=== PATIENT | female | born 1960 | race American Indian/Alaskan Native ===

== ENCOUNTER 2022-02-15 11:33 | Outpatient (CLI) | payer OTHER ==
--- NOTE | 2022-02-16 10:03 | Mammography Report ---
DIGITAL SCREENING MAMMOGRAM WITH CAD, 02/15/2022 CLINICAL INFORMATION / INDICATION: Routine screening mammography. SCREENING MAMMOGRAM TECHNIQUE: Digital bilateral 2D mammography was obtained in the craniocaudal and mediolateral obliqu e projections. This examination was interpreted with the benefit of Computer-Aided Detection analysis . COMPARISON: None. FINDINGS: Breast Density: The breasts are heterogeneously dense, which may obscure small masses. No dominant mass, suspicious calcifications, or architectural distortion in either breast. The exam is limited by the difficulty in positioning the patient. IMPRESSION: No mammographic evidence of malignancy. Follow up recommendation: Routine yearly screening mammogram. BI-RADS Category 1: NEGATIVE A "normal" or negative report should not discourage follow up or biopsy of a clinically significant f inding. A written summary of these findings will be mailed to the patient. The patient will be entered into a mammography reporting system which will generate a reminder letter for the patient's next appointmen t at the appropriate interval. The [employer] recommends yearly mammograms starting at age 40 and continuing as l alex as a woman is in good health. Breast MRI is recommended for women with an approximate 20-25% or greater lifetime risk of breast cancer, including women with a strong family history of breast or ova oma cancer or who have been treated for Hodgkin's disease. Signer Name: Randall El MD Signed: 02/16/2022 9:58 AM Workstation Name: [email or web address]
== END 2022-02-15 11:34 | disposition home or self-care (01) ==
LOC: MAMMO 11:33
PROVIDERS: ATTEND Internal Medicine
DX: Z12.31 Encounter for screening mammogram for malignant neoplasm of breast (principal)
CPT/HCPCS: 77067

== ENCOUNTER 2022-06-29 11:35 | Outpatient (CLI) | payer OTHER ==
--- NOTE | 2022-06-29 15:22 | XRay Report ---
Bilateral feet INDICATION: Foot pain FINDINGS: There is diffuse osteopenia throughout the midfoot and distal foot on the right. Degenerati ve change throughout the MTP joints and IP joints. Diffuse soft tissue swelling throughout the foot. There is also diffuse osteopenia throughout the left foot with degenerative change MCP joints and IP joints. Mild soft tissue swelling within the left and right feet. IMPRESSION: Diffuse osteopenia. Soft tissue swelling within the feet bilaterally. Signer Name: Donny Murphy MD Signed: 06/29/2022 3:18 PM Workstation Name: [email or web address]
--- NOTE | 2022-06-29 15:25 | XRay Report ---
Bilateral ankles INDICATION: Ankle pain FINDINGS: Diffuse osteopenia within the right and left ankle. Diffuse soft tissue swelling is seen. A lignment appears normal. Calcifications on the right calcaneus posteriorly and inferiorly. IMPRESSION: Diffuse soft tissue swelling in the right and left ankles. Diffuse osteopenia. Signer Name: Donny Murphy MD Signed: 06/29/2022 3:20 PM Workstation Name: [email or web address]
== END 2022-06-29 11:36 | disposition home or self-care (01) ==
LOC: XRAY 11:35
PROVIDERS: ATTEND Podiatrist Foot & Ankle Surgery
DX: M85.872 Other specified disorders of bone density and structure, left ankle and foot (principal); M85.871 Other specified disorders of bone density and structure, right ankle and foot; D49.2 Neoplasm of unspecified behavior of bone, soft tissue, and skin; M79.89 Other specified soft tissue disorders